=== PATIENT | female | born 1950 | race Two or more races ===

== ENCOUNTER 2017-11-27 07:37 | Day surgery (SDC) | payer OTHER ==
[~2017-11-27 07:37] MED LIST: HYOSCYAMINE0.125 M1 SL; INTESTINEX1 CA1 PO; TRAM1TAB98 PO
== END 2017-11-27 11:55 | disposition home or self-care (01) ==
LOC: AMB-ENDOS 07:37
DX: D12.5 Benign neoplasm of sigmoid colon (principal)

== ENCOUNTER → 2019-06-17 | Day surgery (SDC) | payer OTHER | END | disposition home or self-care (01) | LOC: ADM 06-11 09:45 → AMB-ENDOS 06:30 | DX: K57.30 Diverticulosis of large intestine without perforation or abscess without bleeding (principal); K64.8 Other hemorrhoids ==

== ENCOUNTER 2021-07-05 07:56 | Day surgery (SDC) | payer OTHER | END 2021-07-05 13:15 | disposition home or self-care (01) | LOC: AMB-ENDOS 07:56 | PROVIDERS: ATTEND Surgery | DX: K62.89 Other specified diseases of anus and rectum (principal); K64.8 Other hemorrhoids; Z20.822 Contact with and (suspected) exposure to COVID-19 ==